=== PATIENT | female | born 1995 | race Caucasian/White ===

== ENCOUNTER → 2018-12-08 | Emergency (ER) | payer OTHER ==
[~2018-12-08] VITALS: Wt 36.5 kg
[~2018-12-08] MED LIST: CEPH500C PO; CIPR500T4 PO
[2018-12-08 15:51] VITALS: BP 122/69; PULSE 83; RESP 16
--- NOTE | 2018-12-08 17:26 | ERD ---
ER Documentation Chief Complaint Chief Complaint burning, frequency, 'some blood' in urine today; freq UTIs HPI 23-year-old female presenting with dysuria and mild hematuria that she noticed since yesterday. She has been sexually active within the last 2 days. She has had UTIs in the past. She has only minimal suprapubic pain. No flank pain. No fevers or chills. No vomiting. ROS All systems reviewed and are negative except as per history of present illness. Medications Home Meds Active Scripts Ciprofloxacin Hcl* (Ciprofloxacin Hcl*) 500 Mg Tablet, 500 MG PO BID for 5 Days, TAB Prov:ANITA ROSALES MD 12/08/18 Cephalexin* (Cephalexin*) 500 Mg Capsule, 500 MG PO BID for uti for 7 Days, #14 CAP Prov:PRISCA SANCHEZ DO 09/14/18 Allergies Allergies: Coded Allergies: No Known Allergy (Unverified , 12/08/18) PMhx/Soc Medical and Surgical Hx: pt denies Medical Hx, pt denies Surgical Hx Hx Alcohol Use: No Hx Substance Use: No Hx Tobacco Use: No Smoking Status: Never smoker FmHx Family History: No diabetes Physical Exam Vitals Vital Signs Date Temp Pulse Resp B/P (MAP) Pulse Ox O2 O2 Flow FiO2 Time Delivery Rate 12/08/18 98.1 83 16 122/69 95 15:51 (86) Physical Exam Const: No acute distress Resp: No respiratory distress Abd: Soft, non tender, non distended. Normal bowel sounds Skin: No petechiae or rashes Back: No midline or flank tenderness Psych: Normal Mood and Affect Results 24 hrs Laboratory Tests Test 12/08/18 17:25 Urine Color RED Urine Clarity CLOUDY Urine pH 7.0 Urine Specific [place] 1.015 Urine Ketones NEGATIVE mg/dL Urine Nitrite NEGATIVE mg/dL Urine Bilirubin NEGATIVE mg/dL Urine Urobilinogen NEGATIVE mg/dL Urine Leukocyte Esterase 2+ Jorge/ul Urine Microscopic RBC > 182 /HPF Urine Microscopic WBC > 182 /HPF Urine Hemoglobin 3+ mg/dL Urine Glucose NEGATIVE mg/dL Urine Total Protein 2+ mg/dl Urine Test NEGATIVE Procedures/MDM Patient is presenting with symptoms of a UTI. Urinalysis is consistent with UTI. Urine culture was sent and is pending. No evidence of sepsis at this time or pyelonephritis. Patient will be discharged with a prescription for ciprofloxacin. Return precautions were discussed. Departure Diagnosis: Primary Impression: UTI (urinary tract infection) Urinary tract infection type: acute cystitis Hematuria presence: with hematuria Qualified Codes: N30.01 - Acute cystitis with hematuria Condition: Stable Patient Instructions: Dysuria Referrals: NO PRIMARY,CARE PHYSICIAN (PCP) Additional Instructions: If your culture is abnormal, we will give you a call and prescribe you antibiotics over the phone. ANITA ROSALES MD December 08, 2018 17:26
== END | disposition home or self-care (01) ==
LOC: FTE 15:29
DX: N30.01 Acute cystitis with hematuria (principal)
CPT/HCPCS: 81001; 84703; 87086; Z7502; 99283

== ENCOUNTER 2019-02-25 08:55 | Emergency (ER) | payer OTHER ==
[~2019-02-25] VITALS: Wt 49.0 kg
[2019-02-25 08:57] VITALS: BP 116/65; PULSE 78; RESP 18
[2019-02-25] MEDS ORDERED: NITR-58 PO (09:48)
--- NOTE | 2019-02-25 09:51 | ERD ---
ER Documentation Chief Complaint Chief Complaint DYSURIA X 1 DAY HPI Patient is a 24-year-old female, who with history of recurrent UTIs, presents the ER for concerns of urinary frequency and dysuria x1 day. Patient denies any fevers, chills, nausea, vomiting, hematuria, vaginal bleeding or vaginal discharge. ROS All systems reviewed and are negative except as per history of present illness. Medications Home Meds Active Scripts Nitrofurantoin Monohyd Macrocr* (Macrobid*) 100 Mg Capsr, 100 MG PO BID for 5 Days, CAP Prov:AVRIL ENCISO PA-C 02/25/19 Ciprofloxacin Hcl* (Ciprofloxacin Hcl*) 500 Mg Tablet, 500 MG PO BID for 5 Days, TAB Prov:ANITA ROSALES MD 12/08/18 Cephalexin* (Cephalexin*) 500 Mg Capsule, 500 MG PO BID for uti for 7 Days, #14 CAP Prov:PRISCA SANCHEZ DO 09/14/18 Allergies Allergies: Coded Allergies: No Known Allergy (Unverified , 12/08/18) PMhx/Soc Medical and Surgical Hx: pt denies Medical Hx, pt denies Surgical Hx Hx Alcohol Use: No Hx Substance Use: No Hx Tobacco Use: No FmHx Family History: No diabetes Physical Exam Vitals Vital Signs Date Temp Pulse Resp B/P (MAP) Pulse Ox O2 O2 Flow FiO2 Time Delivery Rate 02/25/19 98.0 78 18 116/65 99 08:57 (82) Physical Exam GENERAL: Well-developed, well-nourished female. Appears in no acute distress. HEAD: Normocephalic, atraumatic. EYES: Pupils are equally reactive bilaterally. EOMs grossly intact. No conjunctival erythema. ENT: Moist mucous membranes. No uvula deviation. No kissing tonsils. NECK: Supple. No meningismus. Normal range of motion of the neck. LUNG: Clear to auscultation bilaterally. No rhonchi, wheezing, rales or coarse breath sounds. HEART: Regular rate and rhythm. No murmurs, rubs or gallops. ABDOMEN: Soft, nontender, and nondistended. Positive bowel sounds in all four quadrants. No rebound tenderness, no guarding. (-) McBurney's point tenderness. No CVA tenderness. EXTREMITIES: Equal pulses bilaterally. No peripheral clubbing, cyanosis or edema. No unilateral leg swelling. NEUROLOGIC: Alert and oriented. Moving all four extremities without any difficulty. Normal speech. Steady gait. SKIN: Normal color. Warm and dry. No rashes or lesions. Results 24 hrs Laboratory Tests Test 02/25/19 09:35 Bedside Urine pH (LAB) 6.0 Bedside Urine Protein (LAB) Negative Bedside Urine Glucose (UA) Negative Bedside Urine Ketones (LAB) Negative Bedside Urine Blood 2+ Bedside Urine Nitrite (LAB) Negative Bedside Urine Leukocyte Esterase (L 1+ POC Beta HCG, Qualitative NEGATIVE Procedures/MDM MEDICAL DECISION MAKING: This is a 24-year-old female who presents with pain with urination. Vital signs were reviewed. Patient was afebrile. UA showed 1+ leukocytes. Urine was negative. Given these findings, the patients presentation is most consistent with urinary tract infection. I have a much lower clinical concern for pyelonephritis, nephrolithiasis, appendicitis, diverticulitis, constipation,ectopic , PID, ovarian torsion, or tubo-ovarian abscess. Patient was nontoxic, [id number] prior to discharge. PRESCRIPTIONS: Macrobid DISCHARGE: At this time, patient is stable for discharge and outpatient management. I have instructed the patient to follow-up with his/her primary care physician in 1-2 days. Patient should repeat UA in 2 weeks to check for resolution of urinary tract infection. If symptoms persist, patient may need to see a specialist for further examinations and testing. I have instructed the patient to promptly r eturn to the ER at any time for any new or worsening symptoms including increased pain, fever, nausea, vomiting, urinary changes or weakness. The patient and/or family expressed understanding of and agreement with this plan. All questions were answered. Home care instructions were provided. Disclaimer: Inadvertent spelling and grammatical errors are likely due to EHR/dictation software use and do not reflect on the overall quality of patient care. Also, please note that the electronic time recorded on this note does not necessarily reflect the actual time of the patient encounter. Departure Diagnosis: Primary Impression: Urinary tract infection Condition: Stable Patient Instructions: Understanding Urinary Tract Infections (UTIs) Additional Instructions: Call your primary care doctor TOMORROW for an appointment during the next 1-2 days.See the doctor sooner or return here if your condition worsens before your appointment time. AVRIL ENCISO PA-C Feb 25, 2019 09:51
== END 2019-02-25 10:45 | disposition home or self-care (01) ==
LOC: FTE 08:55
DX: N39.0 Urinary tract infection, site not specified (principal)
CPT/HCPCS: 81003; 81025; Z7502; 99283

== ENCOUNTER 2019-04-22 23:15 | Emergency (ER) | payer SELFPAY ==
[~2019-04-22 23:15] MED LIST changes: +NITR-58 PO
== END 2019-04-23 05:07 | disposition left against medical advice (07) ==
LOC: E/R 23:15
DX: Z53.21 Procedure and treatment not carried out due to patient leaving prior to being seen by health care provider (principal)